=== PATIENT | female | born 1990 | race African-American/Black ===

== ENCOUNTER 2016-12-08 17:08 | Emergency (ER) | payer MEDICAID, OTHER ==
[~2016-12-08] VITALS: Ht 162.6 cm; Wt 145.0 kg
[~2016-12-08 17:08] MED LIST: ZITH250T PO
[2016-12-08 17:10] VITALS: BP 137/74; PULSE 83; RESP 17; TEMP 98.1; O2SAT 98
[2016-12-08] MEDS ORDERED: ZOFR4TAB3 SL (17:52)
[2016-12-08] MEDS ORDERED: ZITHTAB PO (17:52)
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
== END 2016-12-08 18:50 | disposition home or self-care (01) ==
LOC: NEPD 17:08
DX: R05 Cough (principal); R68.89 Other general symptoms and signs
CPT/HCPCS: 99283

== ENCOUNTER → 2017-03-24 | Outpatient (CLI) | payer OTHER ==
[~2017-03-24] MED LIST changes: +CLIN1GEL TOPICAL; +CYAN1TAB21 SL; +ERGO1CAP30 PO; -ZITH250T PO; +ZITHTAB PO; +ZOFR4TAB3 SL
[2017-03-24 10:22] LABS: AUTOMATED NEUTROPHIL # 3.2 TH/MM3 (1.8-7.7); BASOPHIL # 0.1 TH/MM3 (0-0.2); BASOPHIL % 1.3 % (0.0-2.0); EOSINOPHIL # 0.2 TH/MM3 (0-0.4); EOSINOPHIL % 3.5 % (0.0-4.0); HEMATOCRIT 34.4 % (35.0-46.0); HEMO FLAGS DIFF FINAL; LYMPH % 35.7 % (9.0-44.0); LYMPHOCYTE # 2.1 TH/MM3 (1.0-4.8); MEAN CELL VOLUME 83.6 FL (80.0-100.0); MEAN CORPUSCULAR HEMOGLOBIN 27.5 PG (27.0-34.0); MEAN CORPUSCULAR HGB CONC 32.9 % (32.0-36.0); MONO % 4.2 % (0.0-8.0); NEUT % 55.3 % (16.0-70.0); PLATELET COUNT 318 TH/MM3 (150-450); RED BLOOD COUNT 4.11 MIL/MM3 (4.00-5.30); RED CELL DISTRIBUTION WIDTH 14.5 % (11.6-17.2); WHITE BLOOD COUNT 5.8 TH/MM3 (4.0-11.0)
[2017-03-24 12:45] LABS: BACTERIA, URINE FEW /hpf; BLOOD, URINE NEG (NEG); COMMENT (UR) CULTURE INDICATED; CULTURE IF INDICATED CULTURE INDICATED; GLUCOSE,URINE NEG (NEG); HYALINE CAST, URINE 2 /lpf (RARE); KETONE, URINE NEG (NEG); MUCUS URINE FEW /lpf (OCC); NITRITE,URINE NEG (NEG); SQUAMOUS EPITHELIAL CELL URINE 26 /hpf (0-5); TRANSITIONAL EPI CELLS, URINE <1 /hpf; URINE COLOR YELLOW (YELLW/STRAW)
[2017-03-24 12:59] LABS: ANION GAP 7 MEQ/L (5-15); AST (GOT) 7 U/L (15-37); BICARBONATE 26.7 MEQ/L (21.0-32.0); BLOOD UREA NITROGEN 9 MG/DL (7-18); CHLORIDE 103 MEQ/L (98-107); GLOMERULAR FILTRATION RATE 119 ML/MIN (>89); GLUCOSE,FASTING 82 MG/DL (74-99); POTASSIUM 3.7 MEQ/L (3.5-5.1); SODIUM (NA) 137 MEQ/L (136-145)
[2017-03-24 13:27] LABS: ALKALINE PHOSPHATASE 83 U/L (45-117); ALT (GPT) 13 U/L (10-53); HDL CHOLESTEROL 46.7 MG/DL (40.0-60.0); LDL CHOLESTEROL 131 MG/DL (0-99); TOTAL BILIRUBIN ADULT 0.6 MG/DL (0.2-1.0)
[2017-03-24 17:00] LABS: HEMOGLOBIN A1a 1.2 %; HEMOGLOBIN A1b 0.9 %; HEMOGLOBIN Ao 85.1 %; HEMOGLOBIN F 1.2 %; HEMOGLOBIN LA1C 1.8 %; HEMOGLOBIN P3 3.4 %
== END ==
LOC: OLAB 09:41
PROVIDERS: ATTEND Nurse Practitioner Family
DX: R73.01 Impaired fasting glucose (principal); R82.90 Unspecified abnormal findings in urine; R51 Headache; R53.83 Other fatigue; E66.01 Morbid (severe) obesity due to excess calories; Z11.3 Encounter for screening for infections with a predominantly sexual mode of transmission
CPT/HCPCS: 80053; 80061; 81001; 82306; 82607; 83036; 84443; 85025; 86592; 86703; 86707; 86803; 87086; 87350

== ENCOUNTER 2017-07-24 04:32 | Emergency (ER) | payer MEDICAID, OTHER ==
[~2017-07-24] VITALS: Ht 162.6 cm; Wt 150.0 kg
[~2017-07-24 04:32] MED LIST changes: -ERGO1CAP30 PO; +VITA500012 PO; -ZITHTAB PO; -ZOFR4TAB3 SL
[2017-07-24 04:35] VITALS: BP 118/74; PULSE 73; RESP 20; TEMP 97.8; O2SAT 100
[2017-07-24] MEDS ORDERED: NAPROXEN 500 MG TAB PO ONE (05:00)
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
[2017-07-24] MEDS ORDERED: DICL75TA PO (05:03)
--- NOTE | 2017-07-24 05:39 | RADRPT ---
EXAM DATE/TIME: 07/24/2017 05:18 [facility] COMPARISON: FOOT LEFT LIMITED (2VWS), July 24, 2017, 5:21. INDICATIONS : History of fall several weeks ago and now severe pain to left lower extremity although patient can't pinpoint if foot or ankle. MEDICAL HISTORY : None. SURGICAL HISTORY : None. ENCOUNTER: Initial ACUITY: 2 weeks PAIN SCORE: 10/10 LOCATION: Left Ankle FINDINGS: Two view exam was performed of the left ankle. The bony structures are in normal alignment. No evid ence of fracture, dislocation, or soft tissue swelling. No radiopaque foreign bodies are seen. Bony mineralization is normal. CONCLUSION: Unremarkable limited examination of the left ankle. Ricki Llanos MD on July 24, 2017 at 5:38 Board Certified Radiologist. This report was verified electronically.
--- NOTE | 2017-07-24 05:40 | RADRPT ---
EXAM DATE/TIME: 07/24/2017 05:21 [facility] COMPARISON: ANKLE LEFT LIMITED (AP&LAT), July 24, 2017, 5:18. INDICATIONS : History of fall several weeks ago and now severe pain to left lower extremity although patient can't pinpoint if foot or ankle. MEDICAL HISTORY : None. SURGICAL HISTORY : None. ENCOUNTER: Initial ACUITY: 2 weeks PAIN SCORE: 10/10 LOCATION: Left foot FINDINGS: Two view examination of the left foot demonstrates no soft tissue swelling, dislocation, or fracture. The calcaneus is intact. Bony mineralization is normal. CONCLUSION: Unremarkable limited examination of the left foot. Ricki Llanos MD on July 24, 2017 at 5:38 Board Certified Radiologist. This report was verified electronically.
[2017-07-26] MEDS ORDERED: FLUT50SP EACH NARE (10:21)
[2017-07-26] MEDS ORDERED: CETI10 PO (10:21)
[2017-07-26] MEDS ORDERED: AZIT250T3 PO (10:21)
[2017-07-26] MEDS ORDERED: VITA500012 PO (10:21)
[2017-07-26] MEDS ORDERED: CYAN1TAB21 SL (10:21)
== END 2017-07-24 06:05 | disposition home or self-care (01) ==
LOC: NEPD 04:32
DX: S96.912A Strain of unspecified muscle and tendon at ankle and foot level, left foot, initial encounter (principal); J45.909 Unspecified asthma, uncomplicated; E66.01 Morbid (severe) obesity due to excess calories; W18.30XA Fall on same level, unspecified, initial encounter; Z88.0 Allergy status to penicillin
CPT/HCPCS: 73600; 73620; 99285; E0113